=== PATIENT | female | born 1980 | race Caucasian/White ===

== ENCOUNTER 2017-08-30 14:31 | Emergency (ER) | payer OTHER ==
[~2017-08-30] VITALS: Ht 162.6 cm; Wt 129.8 kg
[2017-08-30] MEDS ORDERED: SODIUM CHLORIDE FLUSH 10ML SYR IVF ONE (15:00)
[2017-08-30] MEDS ORDERED: SODIUM CHLORIDE 0.9% 1,000ML IVBOLUS ONE (15:00)
[2017-08-30] MEDS ORDERED: ASPIRIN 81 MG TABLET CHEW PO ONE (15:00)
[2017-08-30] MEDS ORDERED: LISINOPRIL 20 MG TABLET ONE (15:28)
[2017-08-30] MEDS ORDERED: PLEASE ENTER ALLERGIES MC SCH (15:30)
[2017-08-30] MEDS ORDERED: LISINOPRIL 10 MG TABLET PO ONE (15:30)
[2017-08-30 15:44] LABS: BASOPHILS # (AUTO) 0.05 x10^3/uL (0-0.1); BASOPHILS % (AUTO) 1 % (0-1); EOSINOPHILS # (AUTO) 0.11 x10^3/uL (0-0.4); EOSINOPHILS % (AUTO) 1 % (1-7); LYMPHOCYTES # (AUTO) 3.17 x10^3/uL (1-3.4); LYMPHOCYTES % (AUTO) 35 % (22-44); MD NO; MEAN CORPUSCULAR HEMOGLOBIN 28.5 pg (27.0-34.8); MEAN CORPUSCULAR VOLUME 83.8 fL (80-100); MEAN PLATELET VOLUME 8.4 fL (7.4-10.4); MONOCYTES % (AUTO) 5 % (2-9); NEUTROPHILS # (AUTO) 5.34 x10^3/uL (1.8-6.8); NEUTROPHILS % (AUTO) 58 % (42-75); PLATELET COUNT 310 x10^3/uL (130-400); RED BLOOD COUNT 5.28 x10^6/uL (3.82-5.3); RED CELL DISTRIBUTION WIDTH 14.6 % (9.6-15.2)
[2017-08-30 15:55] LABS: ANION GAP 10 mmol/L (5-15); CALCIUM 10.1 mg/dL (8.5-10.1); CHLORIDE 105 mmol/L (98-107); CREATININE 0.89 mg/dL (0.55-1.02)
[2017-08-30 15:59] LABS: TROPONIN I < 0.015 ng/mL (0.000-0.045)
[2017-08-30 17:20] VITALS: BP 157/91
== END 2017-08-30 18:13 | disposition home or self-care (01) ==
LOC: ED 18:01
DX: I10 Essential (primary) hypertension (principal); R51 Headache; R11.0 Nausea
CPT/HCPCS: 36415; 71046; 71275; 80048; 82040; 83880; 84484; 85025; 85379; 93005; 99285; J7030

== ENCOUNTER 2017-11-25 19:11 | Inpatient (IN) | payer OTHER ==
[~2017-11-25] VITALS: Ht 162.6 cm; Wt 120.6 kg
[2017-11-25] MEDS ORDERED: MORPHINE SULFATE 4 MG/ML, 1ML ONE ×2 (19:17→21:21)
[2017-11-25] MEDS: MORPHINE SULFATE 4 MG/ML, 1ML IVPush PRN ×2 (19:27→21:24)
[2017-11-25] MEDS ORDERED: OMNIPAQUE 350 MG/ML, 100ML BOTTLE ONE (20:33)
[2017-11-25 21:27] LABS: MICROSCOPIC NOT IND
[2017-11-25 21:30] LABS: CULTURE INDICATED? NO
[2017-11-25] MEDS ORDERED: DICYCLOMINE 10 MG/ML, 2ML IM ONE (22:00)
[2017-11-25] MEDS ORDERED: DICYCLOMINE 10 MG/ML, 2ML ONE (22:01)
[2017-11-26] MEDS ORDERED: POLYETHYLENE GLYCOL 17 GM PACKET PO PRN (00:30)
[2017-11-26] MEDS ORDERED: ONDANSETRON 2MG/ML, 2ML IVPush PRN (00:30)
[2017-11-26] MEDS ORDERED: BISACODYL 10 MG SUPP PR PRN (00:30)
[2017-11-26 00:32] VITALS: BP 129/84
[2017-11-26] MEDS: SODIUM CHLORIDE 0.9% 1,000 ML IV SCH ×2 (01:00→13:30)
[2017-11-26] MEDS: DIPHENHYDRAMINE 25 MG CAPSULE PO PRN ×3 (01:41→21:29)
[2017-11-26] MEDS: morphine SULFATE 10 MG/ML, 1ML IVPush PRN ×5 (02:17→21:29)
[2017-11-26 04:58] LABS: BASOPHILS # (AUTO) 0.05 x10^3/uL (0-0.1); BASOPHILS % (AUTO) 1 % (0-1); EOSINOPHILS # (AUTO) 0.31 x10^3/uL (0-0.4); EOSINOPHILS % (AUTO) 4 % (1-7); LYMPHOCYTES # (AUTO) 2.77 x10^3/uL (1-3.4); LYMPHOCYTES % (AUTO) 34 % (22-44); MD NO; MEAN CORPUSCULAR HEMOGLOBIN 28.4 pg (27.0-34.8); MEAN CORPUSCULAR HGB CONC 33.3 g/dL (32.4-35.8); MEAN CORPUSCULAR VOLUME 85.3 fL (80-100); MEAN PLATELET VOLUME 8.6 fL (7.4-10.4); MONOCYTES % (AUTO) 8 % (2-9); NEUTROPHILS # (AUTO) 4.37 x10^3/uL (1.8-6.8); NEUTROPHILS % (AUTO) 54 % (42-75); PLATELET COUNT 307 x10^3/uL (130-400); RED BLOOD COUNT 4.77 x10^6/uL (3.82-5.3); RED CELL DISTRIBUTION WIDTH 14.1 % (9.6-15.2)
[2017-11-26 05:13] LABS: CHLORIDE 107 mmol/L (98-107)
[2017-11-26 05:20] LABS: ALANINE AMINOTRANSFERASE 56 U/L (12-78); ALBUMIN 3.4 g/dL (3.4-5.0); ALKALINE PHOSPHATASE 33 U/L (45-117); ANION GAP 9 mmol/L (5-15); BILIRUBIN,TOTAL 1.1 mg/dL (0.2-1.0); CALCIUM 9.6 mg/dL (8.5-10.1); CREATININE 0.78 mg/dL (0.55-1.02); TOTAL PROTEIN 6.8 g/dL (6.4-8.2)
[2017-11-26 08:25] VITALS: BP 123/80
[2017-11-26] MEDS ORDERED: ONDANSETRON ODT 4 MG ONE (09:30)
[2017-11-26] MEDS ORDERED: ONDANSETRON 4 MG TABLET PO PRN (10:00)
[2017-11-26] MEDS ORDERED: ONDANSETRON ODT 4 MG PO PRN (11:00)
[2017-11-26 13:15] VITALS: BP 121/78
[2017-11-26 19:48] VITALS: BP 119/79
[2017-11-27] MEDS: SODIUM CHLORIDE 0.9% 1,000 ML IV SCH ×2 (01:54→17:03)
[2017-11-27 02:04] VITALS: BP 106/70
[2017-11-27] MEDS: morphine SULFATE 10 MG/ML, 1ML IVPush PRN ×4 (05:01→20:13)
[2017-11-27 05:15] LABS: LDL/HDL RATIO 3.1 (0.5-3.0)
[2017-11-27 08:12] VITALS: BP 123/82
[2017-11-27 10:27] LABS: ALBUMIN 3.2 g/dL (3.4-5.0); ANION GAP 10 mmol/L (5-15); CALCIUM 9.3 mg/dL (8.5-10.1); CHLORIDE 109 mmol/L (98-107)
[2017-11-27 10:32] LABS: ALANINE AMINOTRANSFERASE 58 U/L (12-78); ALKALINE PHOSPHATASE 30 U/L (45-117); BILIRUBIN,TOTAL 1.2 mg/dL (0.2-1.0); TOTAL PROTEIN 6.4 g/dL (6.4-8.2)
[2017-11-27] MEDS ORDERED: MORPHINE SULFATE 4 MG/ML, 1ML ONE (10:35)
[2017-11-27 14:00] VITALS: BP_SYST 129; BP_SYST 159; BP_DIAS 73; BP_DIAS 83
[2017-11-27] MEDS: DIPHENHYDRAMINE 25 MG CAPSULE PO PRN (20:15)
[2017-11-27 23:18] VITALS: BP 114/73
[2017-11-28 04:57] VITALS: BP 125/85
[2017-11-28 05:04] LABS: BASOPHILS # (AUTO) 0.05 x10^3/uL (0-0.1); BASOPHILS % (AUTO) 1 % (0-1); EOSINOPHILS # (AUTO) 0.26 x10^3/uL (0-0.4); EOSINOPHILS % (AUTO) 4 % (1-7); LYMPHOCYTES # (AUTO) 2.05 x10^3/uL (1-3.4); LYMPHOCYTES % (AUTO) 35 % (22-44); MD NO; MEAN CORPUSCULAR HEMOGLOBIN 28.7 pg (27.0-34.8); MEAN CORPUSCULAR HGB CONC 33.6 g/dL (32.4-35.8); MEAN CORPUSCULAR VOLUME 85.5 fL (80-100); MEAN PLATELET VOLUME 8.8 fL (7.4-10.4); MONOCYTES # (AUTO) 0.46 x10^3/uL (0.2-0.8); MONOCYTES % (AUTO) 8 % (2-9); NEUTROPHILS # (AUTO) 3.07 x10^3/uL (1.8-6.8); NEUTROPHILS % (AUTO) 52 % (42-75); PLATELET COUNT 264 x10^3/uL (130-400); RED BLOOD COUNT 4.79 x10^6/uL (3.82-5.3); RED CELL DISTRIBUTION WIDTH 14.1 % (9.6-15.2)
[2017-11-28] MEDS: SODIUM CHLORIDE 0.9% 1,000 ML IV SCH ×2 (05:07→18:12)
[2017-11-28] MEDS: morphine SULFATE 10 MG/ML, 1ML IVPush PRN ×5 (05:11→21:27)
[2017-11-28 05:14] LABS: ALBUMIN 3.3 g/dL (3.4-5.0); ANION GAP 11 mmol/L (5-15); CHLORIDE 108 mmol/L (98-107)
[2017-11-28 05:18] LABS: ALANINE AMINOTRANSFERASE 117 U/L (12-78); ALKALINE PHOSPHATASE 31 U/L (45-117); BILIRUBIN,TOTAL 1.2 mg/dL (0.2-1.0); CREATININE 0.64 mg/dL (0.55-1.02); TOTAL PROTEIN 6.7 g/dL (6.4-8.2)
[2017-11-28 10:14] VITALS: BP 135/89
[2017-11-28] MEDS ORDERED: MORPHINE SULFATE 4 MG/ML, 1ML ONE (10:33)
[2017-11-28 13:13] VITALS: BP 122/82
[2017-11-28 19:04] VITALS: BP 149/87
[2017-11-28] MEDS: DIPHENHYDRAMINE 25 MG CAPSULE PO PRN (21:27)
[2017-11-29] MEDS: morphine SULFATE 10 MG/ML, 1ML IVPush PRN ×3 (00:33→21:10)
[2017-11-29 01:28] VITALS: BP 114/66
[2017-11-29 05:48] LABS: BASOPHILS # (AUTO) 0.02 x10^3/uL (0-0.1); BASOPHILS % (AUTO) 0 % (0-1); EOSINOPHILS # (AUTO) 0.32 x10^3/uL (0-0.4); EOSINOPHILS % (AUTO) 5 % (1-7); LYMPHOCYTES # (AUTO) 2.48 x10^3/uL (1-3.4); LYMPHOCYTES % (AUTO) 40 % (22-44); MD NO; MEAN CORPUSCULAR HEMOGLOBIN 28.6 pg (27.0-34.8); MEAN CORPUSCULAR HGB CONC 33.7 g/dL (32.4-35.8); MEAN PLATELET VOLUME 9.1 fL (7.4-10.4); MONOCYTES # (AUTO) 0.53 x10^3/uL (0.2-0.8); MONOCYTES % (AUTO) 9 % (2-9); NEUTROPHILS # (AUTO) 2.79 x10^3/uL (1.8-6.8); NEUTROPHILS % (AUTO) 46 % (42-75); PLATELET COUNT 275 x10^3/uL (130-400); RED BLOOD COUNT 4.86 x10^6/uL (3.82-5.3); RED CELL DISTRIBUTION WIDTH 13.8 % (9.6-15.2)
[2017-11-29 05:54] LABS: CHLORIDE 107 mmol/L (98-107)
[2017-11-29 06:03] LABS: ALANINE AMINOTRANSFERASE 169 U/L (12-78); ALBUMIN 3.3 g/dL (3.4-5.0); ALKALINE PHOSPHATASE 34 U/L (45-117); ANION GAP 12 mmol/L (5-15); BILIRUBIN,TOTAL 1.3 mg/dL (0.2-1.0); CALCIUM 10.2 mg/dL (8.5-10.1); CREATININE 0.76 mg/dL (0.55-1.02); TOTAL PROTEIN 6.7 g/dL (6.4-8.2)
[2017-11-29] MEDS: SODIUM CHLORIDE 0.9% 1,000 ML IV SCH (07:41)
[2017-11-29 09:38] VITALS: BP 132/78
[2017-11-29] MEDS: DIPHENHYDRAMINE 25 MG CAPSULE PO PRN ×2 (09:48→21:21)
[2017-11-29] MEDS ORDERED: FENTANYL PF 250 MCG/5ML ONE (13:22)
[2017-11-29] MEDS ORDERED: MIDAZOLAM 1 MG/ML, 2ML ONE (13:22)
[2017-11-29] MEDS ORDERED: SCOPOLAMINE PATCH, 1.5MG PATCH.TD72 TD ONE (13:30)
[2017-11-29] MEDS ORDERED: OxyconTIN ER 20 MG TAB.ER PO ONE (13:30)
[2017-11-29] MEDS ORDERED: ONDANSETRON ODT 8 MG PO ONE (13:30)
[2017-11-29] MEDS ORDERED: ACETAMINOPHEN 500 MG TABLET PO ONE (13:30)
[2017-11-29] MEDS ORDERED: SUCCINYLCHOLINE 20 MG/ML, 10ML ONE (14:01)
[2017-11-29] MEDS ORDERED: PROPOFOL 10 MG/ML, 20ML ONE (14:01)
[2017-11-29] MEDS ORDERED: CEFOTETAN 2 GM ONE (14:01)
[2017-11-29] MEDS ORDERED: KETOROLAC 30 MG/1 ML ONE (14:01)
[2017-11-29] MEDS ORDERED: GLYCOPYRROLATE 0.2MG/1ML, 5ML ONE (14:01)
[2017-11-29] MEDS ORDERED: NEOSTIGMINE 1 MG/ML, 10ML ONE (14:01)
[2017-11-29] MEDS ORDERED: ROCURONIUM 10 MG/ML,10ML ONE (14:01)
[2017-11-29] MEDS ORDERED: DEXAMETHASONE 4 MG/ML, 1ML ONE (14:01)
[2017-11-29] MEDS ORDERED: BUPIVACAINE/PF 0.5% ONE (14:44)
[2017-11-29] MEDS ORDERED: MIDAZOLAM 1 MG/ML, 2ML IV PRN (15:00)
[2017-11-29] MEDS ORDERED: MORPHINE SULFATE 4 MG/ML, 1ML IVPush PRN (15:00)
[2017-11-29] MEDS ORDERED: FENTANYL PF 100 MCG/2ML IV PRN (15:00)
[2017-11-29] MEDS ORDERED: LABETALOL 5MG/ML, 20ML IV PRN (15:00)
[2017-11-29] MEDS ORDERED: ALBUTEROL SULFATE 2.5 MG/3 ML NPPB PRN (15:00)
[2017-11-29] MEDS ORDERED: OXYcodone 5 MG/5 ML ORAL.SOL UDC PO PRN (15:00)
[2017-11-29] MEDS ORDERED: PROMETHAZINE 25 MG/ML, 1ML IV PRN (15:00)
[2017-11-29] MEDS ORDERED: ONDANSETRON ODT 8 MG PO PRN (15:00)
[2017-11-29] MEDS ORDERED: MEPERIDINE/PF 25MG/0.5ML IVPush PRN (15:00)
[2017-11-29] MEDS ORDERED: hydrALAzine 20 MG/ML, 1ML IV PRN (15:00)
[2017-11-29] MEDS ORDERED: PROMETHAZINE 12.5 MG SUPP PR PRN (15:00)
[2017-11-29] MEDS ORDERED: FENTANYL PF 100 MCG/2ML ONE (15:24)
[2017-11-29 18:41] VITALS: BP 140/80
[2017-11-30 00:45] VITALS: BP 130/82
[2017-11-30] MEDS: morphine SULFATE 10 MG/ML, 1ML IVPush PRN ×3 (01:45→10:30)
[2017-11-30] MEDS: SODIUM CHLORIDE 0.9% 1,000 ML IV SCH ×2 (01:50→13:00)
[2017-11-30 04:26] VITALS: BP 123/61
[2017-11-30 05:31] LABS: CHLORIDE 108 mmol/L (98-107)
[2017-11-30 05:40] LABS: ALANINE AMINOTRANSFERASE 229 U/L (12-78); ALBUMIN 3.2 g/dL (3.4-5.0); ALKALINE PHOSPHATASE 39 U/L (45-117); ANION GAP 13 mmol/L (5-15); BILIRUBIN,TOTAL 1.2 mg/dL (0.2-1.0); CALCIUM 9.6 mg/dL (8.5-10.1); CREATININE 0.88 mg/dL (0.55-1.02); TOTAL PROTEIN 6.8 g/dL (6.4-8.2)
[2017-11-30 05:53] LABS: BASOPHILS # (AUTO) 0.04 x10^3/uL (0-0.1); BASOPHILS % (AUTO) 0 % (0-1); EOSINOPHILS # (AUTO) 0.09 x10^3/uL (0-0.4); EOSINOPHILS % (AUTO) 1 % (1-7); LYMPHOCYTES # (AUTO) 1.51 x10^3/uL (1-3.4); LYMPHOCYTES % (AUTO) 16 % (22-44); MD NO; MEAN CORPUSCULAR HEMOGLOBIN 28.5 pg (27.0-34.8); MEAN CORPUSCULAR HGB CONC 33.2 g/dL (32.4-35.8); MEAN CORPUSCULAR VOLUME 85.9 fL (80-100); MEAN PLATELET VOLUME 9.1 fL (7.4-10.4); MONOCYTES # (AUTO) 0.55 x10^3/uL (0.2-0.8); MONOCYTES % (AUTO) 6 % (2-9); NEUTROPHILS % (AUTO) 77 % (42-75); PLATELET COUNT 328 x10^3/uL (130-400); RED BLOOD COUNT 4.76 x10^6/uL (3.82-5.3); RED CELL DISTRIBUTION WIDTH 13.8 % (9.6-15.2)
[2017-11-30 08:20] VITALS: BP 116/67
[2017-11-30] MEDS ORDERED: OXYC5TAB2 PO (10:56)
[2017-11-30] MEDS ORDERED: DOCU-131 PO (12:41)
[2017-11-30 13:50] VITALS: BP 120/64
== END 2017-11-30 14:05 | disposition home or self-care (01) | DRG 417 ==
LOC: ED 22:49 → EDIP 23:24 → 4NOR 11-26 00:09
PROVIDERS: ADMIT Internal Medicine; ATTEND Internal Medicine
PROC: BF131ZZ Fluoroscopy of Gallbladder and Bile Ducts using Low Osmolar Contrast (ICD-10-PCS; 2017-11-29)
PROC: 0FT44ZZ Resection of Gallbladder, Percutaneous Endoscopic Approach (ICD-10-PCS; principal; 2017-11-29 13:30)
DX: K80.20 Calculus of gallbladder without cholecystitis without obstruction (principal); K85.10 Biliary acute pancreatitis without necrosis or infection; K76.0 Fatty (change of) liver, not elsewhere classified; Z68.41 Body mass index [BMI] 40.0-44.9, adult; G89.18 Other acute postprocedural pain; E66.01 Morbid (severe) obesity due to excess calories; G89.29 Other chronic pain; R74.0 Nonspecific elevation of levels of transaminase and lactic acid dehydrogenase [LDH]; I10 Essential (primary) hypertension; Z80.3 Family history of malignant neoplasm of breast; Z90.710 Acquired absence of both cervix and uterus; Z88.6 Allergy status to analgesic agent; Z88.5 Allergy status to narcotic agent; Z90.89 Acquired absence of other organs; Z98.84 Bariatric surgery status
CPT/HCPCS: 36415; 74177; 74300; 76700; 80053; 80061; 81003; 83690; 83735; 84100; 85025; 88304; 96372; 96374; 96376; 99285; J1100; J1885; J2250; J2704; J2710; J3010; J3490; Q0162; Q9967; J0330; J0500; J2270; J7030; Q0163; S0074